=== PATIENT | female | born 1945 | race Caucasian/White ===

== ENCOUNTER 2017-11-19 06:00 | Day surgery (SDC) | payer OTHER ==
[~2017-11-19 06:00] MED LIST: COZAAR100 MG PO; CRESTOR10 MG PO; PROTONIX40 MG PO
[2017-11-19] MEDS ORDERED: NAPROXEN SODIU550 MG PO (08:08)
== END 2017-11-19 11:37 | disposition home or self-care (01) ==
LOC: CIR.AMB 06:00
DX: N95.0 Postmenopausal bleeding (principal)

== ENCOUNTER 2021-06-27 06:00 | Day surgery (SDC) | payer OTHER ==
[~2021-06-27] VITALS: Ht 157.5 cm; Wt 88.5 kg
[~2021-06-27 06:00] MED LIST changes: +NAPROXEN SODIU550 MG PO
[2021-06-27] MEDS ORDERED: IBU600 MG PO (08:26)
== END 2021-06-27 13:35 | disposition home or self-care (01) ==
LOC: CIR.AMB 06:00
PROVIDERS: ATTEND Obstetrics & Gynecology Gynecology
DX: N85.8 Other specified noninflammatory disorders of uterus (principal); Z88.2 Allergy status to sulfonamides; I10 Essential (primary) hypertension; K29.70 Gastritis, unspecified, without bleeding; E66.9 Obesity, unspecified; E78.5 Hyperlipidemia, unspecified